=== PATIENT | female | born 1980 | race Caucasian/White ===

== ENCOUNTER 2016-12-12 22:56 | Emergency (ER) | payer SELFPAY ==
--- NOTE | 2016-12-12 23:29 | DIAGNOSTIC IMAGING REPORT ---
PROCEDURE: XR FOOT 3 VIEWS - LEFT INDICATION: TRAUMA/INJURY TECHNIQUE: Three views. COMPARISON: None. FINDINGS: No fracture or dislocation mild first MTP joint degenerative changes. Soft tissues are unremarkable. IMPRESSION: 1. 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
--- NOTE | 2016-12-12 23:43 | ED ORDER SUMMARY ---
..... Patient: MAURIZIO ANDRADE OrderSheet [facility] VisitID: [id number] [place] [address] 36y, F Registration Date/Time: 12/12/2016 ORDER SHEET Weight: 74.8 kg (stated) Allergies: No Known Drug Allergy GENERAL ORDERS: Foot 3V Left Urgent (23:06 12/12/2016 Carlo R.NMaxime per protocol) (Ack 23:09 [facility] ER Residential Aide) (23:39 [facility] ER Tech1) Orthopedic Boot (23:33 12/12/2016 Pippa Obregon) (Ack 23:48 JMargareth R.N.) (23:49 [facility] ER Tech1) MEDICATION ORDERS: Motrin PO 600 mg (NOW) (23:07 12/12/2016 Pippa Obregon) (23:18 JDeElena R.N.) Morphine IM 4 mg (HIGH ALERT MEDICATION, NOW) (23:38 12/12/2016 Pippa Obregon) (Ack 23:48 JDeElena R.N.) (23:58 JDeElena R.N.) IV FLUIDS: ORDER SHEET NOTES: [Electronically signed by Reid Rajput Dr. (23:44 12/12/2016)] [Electronically signed by Herrera Ny R.N. (00:03 12/13/2016)] [Electronically locked/signed by Herrera Ny R.N. (00:03 12/13/2016)]
--- NOTE | 2016-12-12 23:43 | ED CLINICAL REPORT ---
Clinical Report - Physicians/Mid Levels [facility] [address] [place] [address] 12/12/2016 22:57 Patient: MAURIZIO ANDRADE Time Seen: 22:59; initial patient contact. Arrived- By private vehicle. Historian- patient. HISTORY OF PRESENT ILLNESS Chief Complaint: Injury to the left ankle. The injury happened today. Occurred at home. The patient slipped and sustained an eversion injury while stepping down. Patient is experiencing moderate pain. Patient denies injury to the head or neck. REVIEW OF SYSTEMS The patient complains of pain on weight bearing. She has had swelling. No tingling, weakness or numbness. All systems otherwise negative, except as recorded above. PAST HISTORY Heart Murmur. Lumbar Strain. Dizziness. Vertigo. Hypertension. SURGERIES: Ankle Surgery. Medications: None. Allergies: No Known Drug Allergy. SOCIAL HISTORY Current every day smoker. ADDITIONAL NOTES The nursing notes have been reviewed. PHYSICAL EXAM Vital Signs: 12/12/2016 23:01 BP: 160/105. HR: 81. RR: 24. O2 saturation: 100%. Temp: 99.1 F. Pain level now: 910. Have been reviewed. Hypertensive. Tachycardic. Respiratory rate normal. Temperature normal. Oxygen saturation normal. Appearance: Alert. Oriented X3. No acute distress. Skin: Skin intact. Skin warm and dry. Extremities: Left medial ankle: moderate tenderness and swelling of the medial ligaments and medial malleolus. Limited ROM secondary to pain (diminished plantar flexion, dorsiflexion, inversion and eversion). Neurovascular intact distally. No ecchymosis or deformity. Foot and ankle exam otherwise negative. Extremities otherwise negative. Neuro, Vascular and Tendons: Vascular status intact. Sensation intact. Motor intact. Tendon function intact. Gait: Gait not tested due to pain. Neuro: Oriented X 3. No motor deficit. No sensory deficit. LABS, X-RAYS, AND EKG Lt Foot X-ray: No fracture. Normal alignment. No bony lesion or air in the soft tissue. Soft tissues normal. Joint spaces normal. Views: 3 view foot series. Technique: good. The X-rays were independently viewed by me and interpreted contemporaneously by me. Prior films were not available for comparison. Interpretation time: 23:33. PROGRESS AND PROCEDURES Disposition: Discharged home in good and improved condition. Condition: good. CLINICAL IMPRESSION Sprain of the left ankle. INSTRUCTIONS Apply ice for 20 minutes four times a day until better. Don't apply ice directly to skin. Wear boot orthosis until released. Your Current Medications: CONTINUE TAKING THE FOLLOWING MEDICATIONS: None*. Prescription Medications: Hydrocodone/APAP 5mg / 325mg: take 1 orally every 6 hours as needed for pain. Dispense fifteen (15). No refill. Follow-up: Follow up with your doctor in about two days. Call for an appointment. Blood pressure screening was not performed during this visit because the patient has an active diagnosis of hypertension. (Electronically signed by Reid Rajput Dr. 12/12/2016 23:44)
--- NOTE | 2016-12-12 23:43 | ED CLINICAL REPORT ---
Clinical Report - Physicians/Mid Levels [facility] [address] [place] [address] 12/12/2016 22:57 Patient: MAURIZIO ANDRADE Time Seen: 22:59; initial patient contact. Arrived- By private vehicle. Historian- patient. HISTORY OF PRESENT ILLNESS Chief Complaint: Injury to the left ankle. The injury happened today. Occurred at home. The patient slipped and sustained an eversion injury while stepping down. Patient is experiencing moderate pain. Patient denies injury to the head or neck. REVIEW OF SYSTEMS The patient complains of pain on weight bearing. She has had swelling. No tingling, weakness or numbness. All systems otherwise negative, except as recorded above. PAST HISTORY Heart Murmur. Lumbar Strain. Dizziness. Vertigo. Hypertension. SURGERIES: Ankle Surgery. Medications: None. Allergies: No Known Drug Allergy. SOCIAL HISTORY Current every day smoker. ADDITIONAL NOTES The nursing notes have been reviewed. PHYSICAL EXAM Vital Signs: 12/12/2016 23:01 BP: 160/105. HR: 81. RR: 24. O2 saturation: 100%. Temp: 99.1 F. Pain level now: 910. Have been reviewed. Hypertensive. Tachycardic. Respiratory rate normal. Temperature normal. Oxygen saturation normal. Appearance: Alert. Oriented X3. No acute distress. Skin: Skin intact. Skin warm and dry. Extremities: Left medial ankle: moderate tenderness and swelling of the medial ligaments and medial malleolus. Limited ROM secondary to pain (diminished plantar flexion, dorsiflexion, inversion and eversion). Neurovascular intact distally. No ecchymosis or deformity. Foot and ankle exam otherwise negative. Extremities otherwise negative. Neuro, Vascular and Tendons: Vascular status intact. Sensation intact. Motor intact. Tendon function intact. Gait: Gait not tested due to pain. Neuro: Oriented X 3. No motor deficit. No sensory deficit. LABS, X-RAYS, AND EKG Lt Foot X-ray: No fracture. Normal alignment. No bony lesion or air in the soft tissue. Soft tissues normal. Joint spaces normal. Views: 3 view foot series. Technique: good. The X-rays were independently viewed by me and interpreted contemporaneously by me. Prior films were not available for comparison. Interpretation time: 23:33. PROGRESS AND PROCEDURES Disposition: Discharged home in good and improved condition. Condition: good. CLINICAL IMPRESSION Sprain of the left ankle. INSTRUCTIONS Apply ice for 20 minutes four times a day until better. Don't apply ice directly to skin. Wear boot orthosis until released. Your Current Medications: CONTINUE TAKING THE FOLLOWING MEDICATIONS: None*. Prescription Medications: Hydrocodone/APAP 5mg / 325mg: take 1 orally every 6 hours as needed for pain. Dispense fifteen (15). No refill. Follow-up: Follow up with your doctor in about two days. Call for an appointment. Blood pressure screening was not performed during this visit because the patient has an active diagnosis of hypertension. (Electronically signed by Reid Rajput Dr. 12/12/2016 23:44)
--- NOTE | 2016-12-12 23:43 | ED ORDER SUMMARY ---
..... Patient: MAURIZIO ANRDADE OrderSheet [facility] VisitID: [id number] [place] [address] 36y, F Registration Date/Time: 12/12/2016 ORDER SHEET Weight: 74.8 kg (stated) Allergies: No Known Drug Allergy GENERAL ORDERS: Foot 3V Left Urgent (23:06 12/12/2016 Carlo R.NMaxime per protocol) (Ack 23:09 [facility] ER Water Manager) (23:39 [facility] ER Tech1) Orthopedic Boot (23:33 12/12/2016 Pippa Obregon) (Ack 23:48 JMargareth R.N.) (23:49 [facility] ER Tech1) MEDICATION ORDERS: Motrin PO 600 mg (NOW) (23:07 12/12/2016 Pippa Obregon) (23:18 JDeElena R.N.) Morphine IM 4 mg (HIGH ALERT MEDICATION, NOW) (23:38 12/12/2016 Pippa Obregon) (Ack 23:48 JDeElena R.N.) (23:58 JDeElena R.N.) IV FLUIDS: ORDER SHEET NOTES: [Electronically signed by Reid Rajput Dr. (23:44 12/12/2016)] [Electronically signed by Herrera Ny R.N. (00:03 12/13/2016)] [Electronically locked/signed by Herrera Ny R.N. (00:03 12/13/2016)]
--- NOTE | 2016-12-12 23:43 | ED NURSING NOTES ---
Clinical Report - Nurses [facility] [place] [address] 12/12/2016 22:57 Patient: MAURIZIO ANDRADE TRIAGE Triage time 23:02. Acuity: LEVEL 4. Chief Complaint: INJURY TO THE LEFT FOOT. --23:05 Herrera Ny R.N. 23:01 12/12/16. BP: 160/105. HR: 81. RR: 24 (regular and unlabored). O2 saturation: 100% on room air. Temp: 99.1 F (oral). Pain level now: 04/24. --23:05 Herrera Ny R.N. Weight: 74.8 kg stated. Height/Length: 68 inches Per Patient. BMI: 25.1. --23:05 Herrera Ny R.N. Medications None. --23:04 Herrera Ny R.N. Allergies No Known Drug Allergy. --23:04 Herrera Ny R.N. History Arrived by private vehicle. Historian: patient. Accompanied by daughter. This occurred today. Mechanism of injury: fell (tripped). PAST MEDICAL HX: Denies current . SOCIAL HX: Smoker- current status unknown (cigarette). Occasional alcohol use. No drug use. ABUSE ASSESSMENT: No report of abuse. SELF HARM ASSESSMENT: A self harm assessment was performed. The patient answered "no" to the question "Do you have thoughts of harming or killing yourself?" and "Are you here because you tried to hurt yourself?". NUTRITIONAL RISK ASSESSMENT: The nutritional risk assessment revealed no deficiencies. LEARNING NEEDS ASSESSMENT: The learning needs assessment revealed no barriers. FALL RISK ASSESSMENT: Fall risk assessment completed. Risk factors identified include patient history of fall. SKIN INTEGRITY ASSESSMENT: Skin integrity risk assessment completed. No skin integrity risk identified. --23:05 Herrera Ny R.N. PROBLEMS: Heart Murmur. Lumbar Strain. Dizziness. Vertigo. Immunizations. Hypertension. --23:05 Herrera yN R.N. ADDITIONAL SURGERIES: Ankle Surgery. --23:05 Herrera Ny R.N. Interventions ID band on patient. To treatment room. --23:05 Herrera Ny R.N. PHYSICAL ASSESSMENT To room via wheelchair. GENERAL / NEURO / PSYCH: Oriented X 4. Alert. --23:07 Herrera Ny R.N. EXTREMITIES: Pain with weight bearing. Limping gait. ( redness and pain with movement and touch). SKIN: Skin is warm and dry. --23:07 Herrera Ny R.N. NURSING PROGRESS NOTES Cold pack applied. Two patient identifiers checked. Call light placed in reach. Side rails up x 1. Bed placed in lowest position. Brakes of bed on. Patient ready for evaluation- chart flagged. Patient waiting for evaluation. --23:06 Herrera Ny R.N. 23:10 12/12/2016 Motrin PO Tablets 600 mg given. Allergies verified and confirmed 5 rights. --23:18 Rex Zuluaga R.N. Ankle walker applied to left foot; distal pulses intact, sensation intact and motor function within normal limits. --23:49 Abigail Wright, ER Tech1 23:58 12/12/2016 Morphine (Morphine Sulfate (PF)) IM 4 mg given. Given in the right ventral gluteus. Allergies verified, confirmed 5 rights and sedative warning given to the patient. (Daughter to drive pt home.). --23:58 Rex Zuluaga R.N. DISPOSITION / DISCHARGE Departure time: 00:02. Condition at departure: stable. No learning barriers present. Discharge instructions provided and reviewed with the patient and family. Reviewed warnings. Reviewed medication(s) side effects, precautions, dosing and course information. Prescription(s) given to the patient. Treatments reviewed. Reviewed referrals for followup. Patient and family verbalized understanding. Written instructions provided in [place]. The patient was discharged home and accompanied by family. She left the Emergency Department ambulatory and via private vehicle. Family member driving. --00:02 Herrera Ny R.N. 00:01 12/13/16. BP: 156/95. HR: 88. RR: 20. O2 saturation: 98% on room air. Temp: 98.4 F (oral). Pain level now: 02/21. --00:02 Herrera Ny R.N. Locked/Released at 12/13/2016 0:03 by Herrera Ny R.N.
--- NOTE | 2016-12-12 23:43 | ED NURSING NOTES ---
Clinical Report - Nurses [facility] [place] [address] 12/12/2016 22:57 Patient: MAURIZIO ANDRADE TRIAGE Triage time 23:02. Acuity: LEVEL 4. Chief Complaint: INJURY TO THE LEFT FOOT. --23:05 Herrera Ny R.N. 23:01 12/12/16. BP: 160/105. HR: 81. RR: 24 (regular and unlabored). O2 saturation: 100% on room air. Temp: 99.1 F (oral). Pain level now: 04/24. --23:05 Herrera Ny R.N. Weight: 74.8 kg stated. Height/Length: 68 inches Per Patient. BMI: 25.1. --23:05 Herrera Ny R.N. Medications None. --23:04 Herrera Ny R.N. Allergies No Known Drug Allergy. --23:04 Herrera Ny R.N. History Arrived by private vehicle. Historian: patient. Accompanied by daughter. This occurred today. Mechanism of injury: fell (tripped). PAST MEDICAL HX: Denies current . SOCIAL HX: Smoker- current status unknown (cigarette). Occasional alcohol use. No drug use. ABUSE ASSESSMENT: No report of abuse. SELF HARM ASSESSMENT: A self harm assessment was performed. The patient answered "no" to the question "Do you have thoughts of harming or killing yourself?" and "Are you here because you tried to hurt yourself?". NUTRITIONAL RISK ASSESSMENT: The nutritional risk assessment revealed no deficiencies. LEARNING NEEDS ASSESSMENT: The learning needs assessment revealed no barriers. FALL RISK ASSESSMENT: Fall risk assessment completed. Risk factors identified include patient history of fall. SKIN INTEGRITY ASSESSMENT: Skin integrity risk assessment completed. No skin integrity risk identified. --23:05 Herrera Ny R.N. PROBLEMS: Heart Murmur. Lumbar Strain. Dizziness. Vertigo. Immunizations. Hypertension. --23:05 Herrera Ny R.N. ADDITIONAL SURGERIES: Ankle Surgery. --23:05 Herrera Ny R.N. Interventions ID band on patient. To treatment room. --23:05 Herrera Ny R.N. PHYSICAL ASSESSMENT To room via wheelchair. GENERAL / NEURO / PSYCH: Oriented X 4. Alert. --23:07 Herrera Ny R.N. EXTREMITIES: Pain with weight bearing. Limping gait. ( redness and pain with movement and touch). SKIN: Skin is warm and dry. --23:07 Herrera Ny R.N. NURSING PROGRESS NOTES Cold pack applied. Two patient identifiers checked. Call light placed in reach. Side rails up x 1. Bed placed in lowest position. Brakes of bed on. Patient ready for evaluation- chart flagged. Patient waiting for evaluation. --23:06 Herrera Ny R.N. 23:10 12/12/2016 Motrin PO Tablets 600 mg given. Allergies verified and confirmed 5 rights. --23:18 Rex Zuluaga R.N. Ankle walker applied to left foot; distal pulses intact, sensation intact and motor function within normal limits. --23:49 Abigail Wright, ER Tech1 23:58 12/12/2016 Morphine (Morphine Sulfate (PF)) IM 4 mg given. Given in the right ventral gluteus. Allergies verified, confirmed 5 rights and sedative warning given to the patient. (Daughter to drive pt home.). --23:58 Rex Zuluaga R.N. DISPOSITION / DISCHARGE Departure time: 00:02. Condition at departure: stable. No learning barriers present. Discharge instructions provided and reviewed with the patient and family. Reviewed warnings. Reviewed medication(s) side effects, precautions, dosing and course information. Prescription(s) given to the patient. Treatments reviewed. Reviewed referrals for followup. Patient and family verbalized understanding. Written instructions provided in Gibraltarian. The patient was discharged home and accompanied by family. She left the Emergency Department ambulatory and via private vehicle. Family member driving. --00:02 Herrera Ny R.N. 00:01 12/13/16. BP: 156/95. HR: 88. RR: 20. O2 saturation: 98% on room air. Temp: 98.4 F (oral). Pain level now: 02/21. --00:02 Herrera Ny R.N. Locked/Released at 12/13/2016 0:03 by Herrera Ny R.N.
--- NOTE | 2016-12-13 00:03 | ED MED RECONCILIATION SUMMARY ---
Patient: MAURIZIO ANDRADE Medication Reconciliation Report [facility] VisitID: [id number] [address] [place] [address] 36y, F Registration Date/Time: 12/12/2016 Weight: 74.8 kg Height/Length: 68 in. BMI: 25.1 ALLERGIES: No Known Drug Allergy The patient's Home Medications are listed below: NONE. The source(s) of the original Home Medication information: Not obtained. The following Medications were given to the patient in the Emergency Department: Motrin [PO] PO 600 mg, administered: 12/12/2016 11:10:00 PM Morphine [IM] IM 4 mg, administered: 12/12/2016 11:58:00 PM The following Medications were prescribed to the patient: Hydrocodone/APAP 5mg / 325mg: take 1 orally every 6 hours as needed for pain. Dispense fifteen (15). No refill. -- Reid Rajput Dr.
--- NOTE | 2016-12-13 00:03 | ED MAR SUMMARY ---
..... Medication Administration Record [facility] [address] [place] [address] Patient: MAURIZIO ANDRADE Visit ID: [id number] 36y, F Weight: 74.8 kg Height/Length: 68 in BMI: 25.1 ALLERGIES: No Known Drug Allergy Given 23:10 12/12/2016 Rex Zuluaga, R.N. Medication Administered: MOTRIN [PO], Dose: 600 mg Tablets PO. Medication Ordered: Motrin PO 600 mg (NOW). Given 23:58 12/12/2016 Rex Zuluaga, R.N. Medication Administered: MORPHINE [IM] (MORPHINE SULFATE (PF)), Dose: 4 mg IM. Medication Ordered: Morphine IM 4 mg (HIGH ALERT MEDICATION, NOW).
--- NOTE | 2016-12-13 00:03 | ED MAR SUMMARY ---
..... Medication Administration Record [facility] [address] [place] [address] Patient: MAURIZIO ANDRADE Visit ID: [id number] 36y, F Weight: 74.8 kg Height/Length: 68 in BMI: 25.1 ALLERGIES: No Known Drug Allergy Given 23:10 12/12/2016 Rex Zuluaga, R.N. Medication Administered: MOTRIN [PO], Dose: 600 mg Tablets PO. Medication Ordered: Motrin PO 600 mg (NOW). Given 23:58 12/12/2016 Rex Zuluaga, R.N. Medication Administered: MORPHINE [IM] (MORPHINE SULFATE (PF)), Dose: 4 mg IM. Medication Ordered: Morphine IM 4 mg (HIGH ALERT MEDICATION, NOW).
--- NOTE | 2016-12-13 00:03 | ED DISCHARGE INSTRUCTIONS ---
Patient: MAURIZIO ANDRADE General Instructions [facility] VisitID: [id number] [place] [address] 36y, F Registration Date/Time: 12/12/2016 Sprain of the left ankle. INSTRUCTIONS Apply ice for 20 minutes four times a day until better. Don't apply ice directly to skin. Wear boot orthosis until released. Your Current Medications: CONTINUE TAKING THE FOLLOWING MEDICATIONS: None*. Prescription Medications: Hydrocodone/APAP 5mg / 325mg: take 1 orally every 6 hours as needed for pain. Dispense fifteen (15). No refill. Follow-up: Follow up with your doctor in about two days. Call for an appointment. Blood pressure screening was not performed during this visit because the patient has an active diagnosis of hypertension. ADDITIONAL INFORMATION Sprain, Ankle,With X-Ray A sprain is an injury to the ligaments or capsule that holds a joint together. There are no broken bones. Most sprains take from four to six weeks to heal. If the ligament is completely torn (severe sprain), it can take several months to recover. Mild to moderate sprains may be treated with an elastic wrap or an in-shoe splint to provide support and prevent re-injury. A mild sprain may not require any additional support. A severe sprain may require surgery to repair. Home care The following guidelines will help you care for your injury at home: Stay off the injured leg as much as possible until you can walk on it without pain. If you have a lot of pain with walking, crutches or a walker may be prescribed. (These can be rented or purchased at many pharmacies and surgical or orthopedic supply stores). Follow your doctor's advice regarding when to begin bearing weight on that leg. Keep your leg elevated to reduce pain and swelling. When sleeping, place a pillow under the injured leg. When sitting, support the injured leg so it is level with your waist. This is very important during the first 48 hours. Apply an ice pack (ice cubes in a plastic bag, wrapped in a towel) over the injured area for 20 minutes every 12 hours the first day. You can place the ice pack directly over the splint/cast. If you were given a boot, open it to apply the ice pack. Continue with ice packs 34 times a day for the next two days, then as needed for the relief of pain and swelling. You may use acetaminophen or ibuprofen to control pain, unless another pain medicine was prescribed. If you have chronic liver or kidney disease or ever had a stomach ulcer or GI bleeding, talk with your doctor before using these medicines. You may return to sports after healing, when you can run without pain. A sprained ankle is at risk for re-injury during the first six weeks. During that time, protect your ankle with an in-shoe splint that prevents tilting of your ankle from side to side. This is very important if you do active work or play sports during that time. Follow-up care Any X-rays you had today dont show any broken bones, breaks, or fractures. Sometimes fractures dont show up on the first X-ray. Bruises and sprains can sometimes hurt as much as a fracture. These injuries can take time to heal completely. If your symptoms dont improve or they get worse, talk with your doctor. You may need a repeat X-ray. When to seek medical care Get prompt medical attention if any of the following occur: The plaster cast or splint gets wet or soft The fiberglass cast or splint gets wet and does not dry for 24 hours Pain or swelling increases, or redness appears Toes become cold, blue, numb or tingly Re-injure your ankle Aircast Sp-Walker Boot Traditional splints and casts for the foot and ankle protect the injury by preventing movement at the joints. However, many injuries heal better and faster if the injured joint can be moved, while protected at the same time. This is the reason for using an Aircast Walker boot. This is a short boot that provides support and protection to the foot and ankle while allowing you to walk. It contains padded air cells that provide compression and help circulation. It is used for both foot and ankle injuries - both sprains and minor fractures. Ankle and foot sprains can take 4-6 weeks to heal. Persons with severe injuries or over age 60 may require more time to heal. During that time, you are prone to re-injury by suddenly twisting your foot or ankle again while the ligaments are still weak. When treating a sprain, the AirCast Walker boot should be worn whenever walking for at least four weeks, or as long as you continue to have ankle pain. Talk to your doctor for specific advice about the treatment of your condition. Air-Stirrup and SP-Walker are trademarks of [employer]. For more information about their products, see www.apta.me. Hydrocodone Bitartrate, Acetaminophen Oral tablet What is this medicine? ACETAMINOPHEN; HYDROCODONE (a set a KELLY bhupendra fen; halle droe KOE done) is a pain reliever. It is used to treat mild to moderate pain. How should I use this medicine? Take this medicine by mouth. Swallow it with a full glass of water. Follow the directions on the prescription label. If the medicine upsets your stomach, take the medicine with food or milk. Do not take more than you are told to take. Talk to your distributor sales manager regarding the use of this medicine in children. This medicine is not approved for use in children. What side effects may I notice from receiving this medicine? Side effects that you should report to your doctor or health animal care supervisor as soon as possible: allergic reactions like skin rash, itching or hives, swelling of the face, lips, or tongue breathing problems confusion feeling faint or lightheaded, falls stomach pain yellowing of the eyes or skin Side effects that usually do not require medical attention (report to your doctor or health animal care supervisor if they continue or are bothersome): nausea, vomiting stomach upset What may interact with this medicine? alcohol antihistamines isoniazid medicines for depression, anxiety, or psychotic disturbances medicines for sleep muscle relaxants naltrexone narcotic medicines (opiates) for pain phenobarbital ritonavir tramadol What if I miss a dose? If you miss a dose, take it as soon as you can. If it is almost time for your next dose, take only that dose. Do not take double or extra doses. Where should I keep my medicine? Keep out of the reach of children. This medicine can be abused. Keep your medicine in a safe place to protect it from theft. Do not share this medicine with anyone. Selling or giving away this medicine is dangerous and against the law. Store at room temperature between 15 and 30 degrees C (59 and 86 degrees F). Protect from light. Keep container tightly closed. Throw away any unused medicine after the expiration date. Discard unused medicine and used packaging carefully. Pets and children can be harmed if they find used or lost packages. What should I tell my health care provider before I take this medicine? They need to know if you have any of these conditions: brain tumor Crohn's disease, inflammatory bowel disease, or ulcerative colitis drink more than 3 alcohol-containing drinks per day drug abuse or addiction head injury heart or circulation problems kidney disease or problems going to the bathroom liver disease lung disease, asthma, or breathing problems an unusual or allergic reaction to acetaminophen, hydrocodone, other opioid analgesics, other medicines, foods, dyes, or preservatives or trying to get breast-feeding What should I watch for while using this medicine? Tell your doctor or health animal care supervisor if your pain does not go away, if it gets worse, or if you have new or a different type of pain. You may develop tolerance to the medicine. Tolerance means that you will need a higher dose of the medicine for pain relief. Tolerance is normal and is expected if you take the medicine for a long time. Do not suddenly stop taking your medicine because you may develop a severe reaction. Your body becomes used to the medicine. This does NOT mean you are addicted. Addiction is a behavior related to getting and using a drug for a non-medical reason. If you have pain, you have a medical reason to take pain medicine. Your doctor will tell you how much medicine to take. If your doctor wants you to stop the medicine, the dose will be slowly lowered over time to avoid any side effects. You may get drowsy or dizzy when you first start taking the medicine or change doses. Do not drive, use machinery, or do anything that may be dangerous until you know how the medicine affects you. Stand or sit up slowly. There are different types of narcotic medicines (opiates) for pain. If you take more than one type at the same time, you may have more side effects. Give your health care provider a list of all medicines you use. Your doctor will tell you how much medicine to take. Do not take more medicine than directed. Call emergency for help if you have problems breathing. The medicine will cause constipation. Try to have a bowel movement at least every 2 to 3 days. If you do not have a bowel movement for 3 days, call your doctor or health animal care supervisor. Too much acetaminophen can be very dangerous. Do not take Tylenol (acetaminophen) or medicines that contain acetaminophen with this medicine. Many non-prescription medicines contain acetaminophen. Always read the labels carefully. You have been given the following additional information: Sprain, Ankle, With X-Ray Walker Boot Hydrocodone Bitartrate, Acetaminophen Oral tablet (Electronically signed by Reid Rajput Dr. 12/12/2016 23:44)
--- NOTE | 2016-12-13 00:03 | ED DISCHARGE INSTRUCTIONS ---
Patient: MAURIZIO ANDRADE General Instructions [facility] VisitID: [id number] [place] [address] 36y, F Registration Date/Time: 12/12/2016 Sprain of the left ankle. INSTRUCTIONS Apply ice for 20 minutes four times a day until better. Don't apply ice directly to skin. Wear boot orthosis until released. Your Current Medications: CONTINUE TAKING THE FOLLOWING MEDICATIONS: None*. Prescription Medications: Hydrocodone/APAP 5mg / 325mg: take 1 orally every 6 hours as needed for pain. Dispense fifteen (15). No refill. Follow-up: Follow up with your doctor in about two days. Call for an appointment. Blood pressure screening was not performed during this visit because the patient has an active diagnosis of hypertension. ADDITIONAL INFORMATION Sprain, Ankle,With X-Ray A sprain is an injury to the ligaments or capsule that holds a joint together. There are no broken bones. Most sprains take from four to six weeks to heal. If the ligament is completely torn (severe sprain), it can take several months to recover. Mild to moderate sprains may be treated with an elastic wrap or an in-shoe splint to provide support and prevent re-injury. A mild sprain may not require any additional support. A severe sprain may require surgery to repair. Home care The following guidelines will help you care for your injury at home: Stay off the injured leg as much as possible until you can walk on it without pain. If you have a lot of pain with walking, crutches or a walker may be prescribed. (These can be rented or purchased at many pharmacies and surgical or orthopedic supply stores). Follow your doctor's advice regarding when to begin bearing weight on that leg. Keep your leg elevated to reduce pain and swelling. When sleeping, place a pillow under the injured leg. When sitting, support the injured leg so it is level with your waist. This is very important during the first 48 hours. Apply an ice pack (ice cubes in a plastic bag, wrapped in a towel) over the injured area for 20 minutes every 12 hours the first day. You can place the ice pack directly over the splint/cast. If you were given a boot, open it to apply the ice pack. Continue with ice packs 34 times a day for the next two days, then as needed for the relief of pain and swelling. You may use acetaminophen or ibuprofen to control pain, unless another pain medicine was prescribed. If you have chronic liver or kidney disease or ever had a stomach ulcer or GI bleeding, talk with your doctor before using these medicines. You may return to sports after healing, when you can run without pain. A sprained ankle is at risk for re-injury during the first six weeks. During that time, protect your ankle with an in-shoe splint that prevents tilting of your ankle from side to side. This is very important if you do active work or play sports during that time. Follow-up care Any X-rays you had today dont show any broken bones, breaks, or fractures. Sometimes fractures dont show up on the first X-ray. Bruises and sprains can sometimes hurt as much as a fracture. These injuries can take time to heal completely. If your symptoms dont improve or they get worse, talk with your doctor. You may need a repeat X-ray. When to seek medical care Get prompt medical attention if any of the following occur: The plaster cast or splint gets wet or soft The fiberglass cast or splint gets wet and does not dry for 24 hours Pain or swelling increases, or redness appears Toes become cold, blue, numb or tingly Re-injure your ankle Aircast Sp-Walker Boot Traditional splints and casts for the foot and ankle protect the injury by preventing movement at the joints. However, many injuries heal better and faster if the injured joint can be moved, while protected at the same time. This is the reason for using an Aircast Walker boot. This is a short boot that provides support and protection to the foot and ankle while allowing you to walk. It contains padded air cells that provide compression and help circulation. It is used for both foot and ankle injuries - both sprains and minor fractures. Ankle and foot sprains can take 4-6 weeks to heal. Persons with severe injuries or over age 60 may require more time to heal. During that time, you are prone to re-injury by suddenly twisting your foot or ankle again while the ligaments are still weak. When treating a sprain, the AirCast Walker boot should be worn whenever walking for at least four weeks, or as long as you continue to have ankle pain. Talk to your doctor for specific advice about the treatment of your condition. Air-Stirrup and SP-Walker are trademarks of [employer]. For more information about their products, see www.[employer]. Hydrocodone Bitartrate, Acetaminophen Oral tablet What is this medicine? ACETAMINOPHEN; HYDROCODONE (a set a KELLY bhupendra fen; halle droe KOE done) is a pain reliever. It is used to treat mild to moderate pain. How should I use this medicine? Take this medicine by mouth. Swallow it with a full glass of water. Follow the directions on the prescription label. If the medicine upsets your stomach, take the medicine with food or milk. Do not take more than you are told to take. Talk to your waiter/waitress dining car regarding the use of this medicine in children. This medicine is not approved for use in children. What side effects may I notice from receiving this medicine? Side effects that you should report to your doctor or health healthcare project manager as soon as possible: allergic reactions like skin rash, itching or hives, swelling of the face, lips, or tongue breathing problems confusion feeling faint or lightheaded, falls stomach pain yellowing of the eyes or skin Side effects that usually do not require medical attention (report to your doctor or health healthcare project manager if they continue or are bothersome): nausea, vomiting stomach upset What may interact with this medicine? alcohol antihistamines isoniazid medicines for depression, anxiety, or psychotic disturbances medicines for sleep muscle relaxants naltrexone narcotic medicines (opiates) for pain phenobarbital ritonavir tramadol What if I miss a dose? If you miss a dose, take it as soon as you can. If it is almost time for your next dose, take only that dose. Do not take double or extra doses. Where should I keep my medicine? Keep out of the reach of children. This medicine can be abused. Keep your medicine in a safe place to protect it from theft. Do not share this medicine with anyone. Selling or giving away this medicine is dangerous and against the law. Store at room temperature between 15 and 30 degrees C (59 and 86 degrees F). Protect from light. Keep container tightly closed. Throw away any unused medicine after the expiration date. Discard unused medicine and used packaging carefully. Pets and children can be harmed if they find used or lost packages. What should I tell my health care provider before I take this medicine? They need to know if you have any of these conditions: brain tumor Crohn's disease, inflammatory bowel disease, or ulcerative colitis drink more than 3 alcohol-containing drinks per day drug abuse or addiction head injury heart or circulation problems kidney disease or problems going to the bathroom liver disease lung disease, asthma, or breathing problems an unusual or allergic reaction to acetaminophen, hydrocodone, other opioid analgesics, other medicines, foods, dyes, or preservatives or trying to get breast-feeding What should I watch for while using this medicine? Tell your doctor or health healthcare project manager if your pain does not go away, if it gets worse, or if you have new or a different type of pain. You may develop tolerance to the medicine. Tolerance means that you will need a higher dose of the medicine for pain relief. Tolerance is normal and is expected if you take the medicine for a long time. Do not suddenly stop taking your medicine because you may develop a severe reaction. Your body becomes used to the medicine. This does NOT mean you are addicted. Addiction is a behavior related to getting and using a drug for a non-medical reason. If you have pain, you have a medical reason to take pain medicine. Your doctor will tell you how much medicine to take. If your doctor wants you to stop the medicine, the dose will be slowly lowered over time to avoid any side effects. You may get drowsy or dizzy when you first start taking the medicine or change doses. Do not drive, use machinery, or do anything that may be dangerous until you know how the medicine affects you. Stand or sit up slowly. There are different types of narcotic medicines (opiates) for pain. If you take more than one type at the same time, you may have more side effects. Give your health care provider a list of all medicines you use. Your doctor will tell you how much medicine to take. Do not take more medicine than directed. Call emergency for help if you have problems breathing. The medicine will cause constipation. Try to have a bowel movement at least every 2 to 3 days. If you do not have a bowel movement for 3 days, call your doctor or health healthcare project manager. Too much acetaminophen can be very dangerous. Do not take Tylenol (acetaminophen) or medicines that contain acetaminophen with this medicine. Many non-prescription medicines contain acetaminophen. Always read the labels carefully. You have been given the following additional information: Sprain, Ankle, With X-Ray Walker Boot Hydrocodone Bitartrate, Acetaminophen Oral tablet (Electronically signed by Reid Rajput Dr. 12/12/2016 23:44)
--- NOTE | 2016-12-13 00:03 | ED MED RECONCILIATION SUMMARY ---
Patient: MAURIZIO ANDRADE Medication Reconciliation Report [facility] VisitID: [id number] [address] [place] [address] 36y, F Registration Date/Time: 12/12/2016 Weight: 74.8 kg Height/Length: 68 in. BMI: 25.1 ALLERGIES: No Known Drug Allergy The patient's Home Medications are listed below: NONE. The source(s) of the original Home Medication information: Not obtained. The following Medications were given to the patient in the Emergency Department: Motrin [PO] PO 600 mg, administered: 12/12/2016 11:10:00 PM Morphine [IM] IM 4 mg, administered: 12/12/2016 11:58:00 PM The following Medications were prescribed to the patient: Hydrocodone/APAP 5mg / 325mg: take 1 orally every 6 hours as needed for pain. Dispense fifteen (15). No refill. -- Reid Rajput Dr.
== END 2016-12-12 23:57 | disposition home or self-care (01) ==
LOC: ED SRH 22:56
DX: S93.402A Sprain of unspecified ligament of left ankle, initial encounter (principal); W01.0XXA Fall on same level from slipping, tripping and stumbling without subsequent striking against object, initial encounter; Y93.9 Activity, unspecified; Y99.9 Unspecified external cause status; Y92.009 Unspecified place in unspecified non-institutional (private) residence as the place of occurrence of the external cause; I10 Essential (primary) hypertension; F17.200 Nicotine dependence, unspecified, uncomplicated